=== PATIENT | male | born 1945 | race Caucasian/White ===

== ENCOUNTER 2016-07-28 01:32 | Emergency (ER) | payer MEDICARE, OTHER ==
[2016-07-28 01:43] VITALS: BP 134/77; PULSE 90; O2SAT 95
--- NOTE | 2016-07-28 01:53 | ERPHSYRPT ---
- History of Present Illness Time Seen by Provider: 07/28/16 01:49 Source: patient, family Exam Limitations: no limitations Physician History: pt has enlarged proste medically treated but with some urinary residual , aqnd has a UTI about every 2 years; he presents with same symptoms as usual UTI; no vomiting, some fever, no abdominal pain and is emptying bladder per usual. Timing/Duration: today Activites at Onset: none Onset Location: other (urinary) Pain Radiation: none Severity of Pain-Max: none Severity of Pain-Current: none Associated Symptoms: dysuria, urinary frequency Prior abdominal problems: similar symptoms Sexual intercourse history: non-contributory Allergies/Adverse Reactions: Sulfa (Sulfonamide Antibiotics) Allergy (Verified 07/28/16 01:55) Home Medications: Lisinopril 40 mg PO DAILY 01/01/13 [History] Dutasteride 0.5 MG [Avodart 0.5 MG] 0.5 mg PO BID 07/28/16 [History] Finasteride 5 mg [Proscar 5 MG] 5 mg PO DAILY 07/28/16 [History] Hx Tetanus, Diphtheria Vaccination/Date Given: Yes Hx Influenza Vaccination/Date Given: No Hx Pneumococcal Vaccination/Date Given: No - Past Medical History Pertinent Past Medical History: Yes Neurological History: No Pertinent History ENT History: No Pertinent History Cardiac History: Hypertension Respiratory History: No Pertinent History Endocrine Medical History: No Pertinent History GI Medical History: No Pertinent History History: Other (known enlarged prostate) Psycho-Social History: No Pertinent History Male Reproductive Disorders: Prostate Problems - Past Surgical History Past Surgical History: Yes Neuro Surgical History: No Pertinent History Cardiac: No Pertinent History Respiratory: No Pertinent History Gastrointestinal: No Pertinent History Genitourinary: No Pertinent History Musculoskeletal: No Pertinent History Male Surgical History: No Pertinent History Other Surgical History: TONSILECTOMY ADNOIDECTOMY - Social History Smoking Status: Never smoker Exposure to second hand smoke: No Drug Use: none Patient Lives Alone: No - Review of Systems Constitutional: Fever, No Chills Eyes: No Symptoms Ears, Nose, & Throat: No Symptoms Respiratory: No Cough, No Dyspnea Cardiac: No Chest Pain, No Edema, No Syncope Abdominal/Gastrointestinal: No Abdominal Pain, No Nausea, No Vomiting, No Diarrhea Genitourinary Symptoms: Dysuria, Frequency, Hesitancy, Urgency Musculoskeletal: No Back Pain, No Neck Pain Skin: No Rash Neurological: No Dizziness, No Focal Weakness, No Sensory Changes Psychological: No Symptoms Endocrine: No Symptoms All Other Systems: Reviewed and Negative - Nursing Vital Signs Nursing Vital Signs: Initial Vital Signs Temperature 100.3 F Temperature Source Oral Pulse Rate 90 Respiratory Rate 18 Blood Pressure [Right Arm] 134/77 Pain Intensity 1 - Physical Exam General Appearance: no apparent distress, alert Eye Exam: PERRL/EOMI Ears, Nose, Throat Exam: pharynx normal, moist mucous membranes Neck Exam: normal inspection, supple Respiratory Exam: normal breath sounds, lungs clear Cardiovascular Exam: regular rate/rhythm, No edema Gastrointestinal/Abdomen Exam: soft, No tenderness Back Exam: normal inspection, No CVA tenderness Extremity Exam: normal inspection, normal range of motion, No pedal edema Neurologic Exam: alert, oriented x 3, cooperative, sensation nml, No motor deficits Skin Exam: normal color, warm, dry, No rash SpO2: 95 Oxygen Delivery: Room Air - Course Nursing assessment & vital signs reviewed: Yes Ordered Tests: Active Orders 24 hr Category Date Time Status UA W/ MICROSCOPIC Stat Lab 07/28/16 02:07 Completed Medication Summary Discontinued Medications Generic Name Dose Route Start Last Admin Trade Name Freq PRN Reason Stop Dose Admin Ciprofloxacin 500 mg 07/28/16 01:56 07/28/16 02:02 Cipro 500 Mg PO 07/28/16 01:57 500 mg STAT STA Administration Ciprofloxacin Confirm 07/28/16 02:00 Cipro 500 Mg Administered 07/28/16 02:01 Dose 500 mg .ROUTE .STK-MED ONE Nitrofurantoin Macrocrystals 100 mg 07/28/16 02:00 07/28/16 02:02 Macrobid 100mg Capsule PO 07/28/16 02:01 100 mg STAT ONE Administration Nitrofurantoin Macrocrystals Confirm 07/28/16 02:02 Macrobid 100mg Capsule Administered 07/28/16 02:03 Dose 100 mg .ROUTE .STK-MED ONE Lab/Rad Data: Laboratory Results 07/28/16 Range/Units 02:07 Ur Collection Type CLEAN CATCH Urine Color YELLOW (YELLOW) Urine Appearance CLEAR (CLEAR) Urine pH 6.0 (5-6) Ur Specific [place] 1.020 (1.005-1.025) Urine Protein 30 (Negative) Urine Glucose (UA) NEGATIVE (NEGATIVE) mg/dL Urine Ketones NEGATIVE (NEGATIVE) Urine Nitrite NEGATIVE (NEGATIVE) Urine Bilirubin NEGATIVE (NEGATIVE) Urine Urobilinogen 1 (0-1) mg/dL Urine WBC (Auto) NEGATIVE (NEGATIVE) Urine RBC (Auto) SMALL (0-5) Deo/ul Urine Microscopic RBC 5-10 (0-2) /HPF Urine Microscopic WBC 0-2 (0-5) /HPF Ur Epithelial Cells RARE (FEW) /HPF Urine Bacteria FEW (NEGATIVE) /HPF Urine Mucus MODERATE (NEGATIVE) /HPF Specimen Received 07/28/16 0200 - Progress Progress: improved, re-examined Progress Note: 07/28/16 02:54 discussed with pt the near negative UA and his mild resp symptoms; he would like to start treatmetn as it si so much like the prior UTI and will f/u PCP - will send culture; he declines further workup at this time but will f/u PCP; Counseled pt/family regarding: lab results, diagnosis, need for follow-up - Departure Time of Disposition: 03:00 Departure Disposition: Home Clinical Impression: urinary clinical symptoms with fever Condition: Good Critical Care Time: No Instructions: Urinary Tract Infection (UTI), Fever (Symptom) -- Adult Additional Instructions: followup with your dr for progress and possibly more testing this week ; return meantime if not improving Prescriptions: Levofloxacin [Levaquin] 500 mg PO DAILY #10 tablet Nitrofurantoin Monohyd/M-Cryst [Macrobid 100 mg Capsule] 100 mg PO BID #20 capsule
[2016-07-28] MEDS ORDERED: Cipro 500 MG PO STA (01:56)
[2016-07-28] MEDS ORDERED: Macrobid 100MG Capsule PO ONE (02:00)
[2016-07-28] MEDS ORDERED: Cipro 500 MG ONE (02:00)
[2016-07-28] MEDS ORDERED: Macrobid 100MG Capsule ONE (02:02)
[2016-07-28 02:19] LABS: Collection Type CLEAN CATCH
[2016-07-28 02:20] LABS: Bacteria FEW /HPF (NEGATIVE); COMPLETE URINE MICROSCOPIC? YES; Epithelial Cells RARE /HPF (FEW); Mucus MODERATE /HPF (NEGATIVE); WBC 0-2 /HPF (0-5)
== END 2016-07-28 03:12 | disposition home or self-care (01) ==
LOC: ED 01:32
DX: R50.9 Fever, unspecified (principal); R31.9 Hematuria, unspecified; R30.0 Dysuria; R35.0 Frequency of micturition
CPT/HCPCS: 81000; 87086; 99283; A9270-GY

== ENCOUNTER 2020-06-22 12:04 | Emergency (ER) | payer MEDICARE, OTHER ==
--- NOTE | 2020-06-22 12:40 | ERPHSYRPT ---
- History of Present Illness Time Seen by Provider: 06/22/20 12:30 Source: patient Exam Limitations: no limitations Patient Subjective Stated Complaint: Rib pain/injury Triage Nursing Assessment: Patient ambulated back to ED with slow and steady ga it. Patient A+O x3. Patient's skin pink, warm and dry. Patient complains of left sided rib pain. Patient states around 10 am he was using a chainsaw cutting a log and slipped causing him to land on his left side/rib. Patient complains of constant aching, intermittent sharp pain 9/10. No bruising noted. Physician History: Patient is a 74-year-old male presents to our ED with complaints of left-sided rib pain. Patient states he was cutting logs with a chainsaw. Patient slipped on a log and fell onto his left side. Injury occurred just prior to arrival. Patient's pain is at the area of ribs 4 5 and 6. Pain is mostly posterior lateral. No other injuries reported. No BHT or LOC. No neck pain. Cervical spine cleared clinically. Patient denies shortness of breath. Patient is ambulatory with a normal gait pattern. No lower extremity pain. The fall was mechanical. The fall was not associated with any neuro cardiovascular symptomology. Patient declined pain medication is he is no pain may be is still. Patient voices no other complaints at this time. Timing/Duration: today Severity: moderate Modifying Factors: Improves With: movement Associated Symptoms: denies symptoms Allergies/Adverse Reactions: Sulfa (Sulfonamide Antibiotics) Allergy (Verified 06/22/20 12:16) Home Medications: Lisinopril 40 mg PO DAILY 01/01/13 [History] Dutasteride 0.5 MG [Avodart 0.5 MG] 0.5 mg PO BID 07/28/16 [History] Finasteride 5 mg [Proscar 5 MG] 5 mg PO DAILY 07/28/16 [History] Hx Tetanus, Diphtheria Vaccination/Date Given: Yes Hx Influenza Vaccination/Date Given: No Hx Pneumococcal Vaccination/Date Given: No Immunizations Up to Date: Yes Travel Risk - International Travel Have you traveled outside of the country in past 3 weeks: No - Coronavirus Screening Are you exhibiting any of the following symptoms?: No Close contact with a COVID-19 positive Pt in past 14-21 Days: No - Vaccine Status Have you recieved a Covid-19 vaccination: No - Review of Systems Constitutional: No Symptoms Eyes: No Symptoms Ears, Nose, & Throat: No Symptoms Respiratory: No Symptoms Cardiac: No Symptoms Abdominal/Gastrointestinal: No Symptoms Genitourinary Symptoms: No Symptoms Musculoskeletal: No Symptoms Skin: No Symptoms Neurological: No Symptoms Psychological: No Symptoms Endocrine: No Symptoms Hematologic/Lymphatic: No Symptoms Immunological/Allergic: No Symptoms - Past Medical History Pertinent Past Medical History: Yes Neurological History: No Pertinent History ENT History: No Pertinent History Cardiac History: Hypertension Respiratory History: No Pertinent History Endocrine Medical History: No Pertinent History GI Medical History: No Pertinent History History: Other Psycho-Social History: No Pertinent History Male Reproductive Disorders: Prostate Problems Other Medical History: bph - Past Surgical History Past Surgical History: Yes Neuro Surgical History: No Pertinent History Cardiac: No Pertinent History Respiratory: No Pertinent History Gastrointestinal: No Pertinent History Genitourinary: No Pertinent History Musculoskeletal: No Pertinent History Male Surgical History: No Pertinent History Other Surgical History: TONSILECTOMY ADNOIDECTOMY - Social History Smoking Status: Never smoker Exposure to second hand smoke: No Drug Use: none Patient Lives Alone: No - Nursing Vital Signs Nursing Vital Signs: Initial Vital Signs Temperature 97.9 F 06/22/20 12:18 Pulse Rate 111 H 06/22/20 12:18 Respiratory Rate 18 06/22/20 12:18 Blood Pressure 144/101 06/22/20 12:18 O2 Sat by Pulse Oximetry 96 06/22/20 12:18 Pain Scale Pain Intensity 4 - Physical Exam General Appearance: no apparent distress, alert Eye Exam: PERRL/EOMI, eyes nml inspection Ears, Nose, Throat Exam: normal ENT inspection, TMs normal, pharynx normal, moist mucous membranes Neck Exam: normal inspection, non-tender, supple, full range of motion Respiratory Exam: normal breath sounds, lungs clear, No respiratory distress Cardiovascular Exam: regular rate/rhythm, normal heart sounds, normal peripheral pulses Gastrointestinal/Abdomen Exam: soft, normal bowel sounds, No tenderness, No mass Back Exam: normal inspection, normal range of motion, No CVA tenderness, No vertebral tenderness Extremity Exam: normal inspection, normal range of motion, pelvis stable Neurologic Exam: alert, oriented x 3, cooperative, normal mood/affect, nml cerebellar function, nml station & gait, sensation nml, No motor deficits Skin Exam: normal color, warm, dry, No rash Lymphatic Exam: No adenopathy SpO2 Interpretation: normal SpO2: 96 O2 Delivery: Room Air - Course Nursing assessment & vital signs reviewed: Yes - Radiology Exams Chest X-ray Interpretation: Reviewed by me (Hyperinflated lungs. Without focal infiltrate. No large effusion no pneumothorax. Heart not enlarged. Tortuous descending aorta. Bony thorax intact. Osteopenia with degenerative changes and scoliosis.) Ribs X-ray Interpretation: Teleradiologist Report (Nondisplaced lateral 10th rib fracture. Osteopenia. 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 Patient declined pain medication. X-ray reveals left lateral 10th rib nondisplaced fracture. Otherwise no acute findings. Patient received an incentive spirometer. He will use [id number] pain medication. Patient has no other complaints. No other injuries reported. Patient states he is ready for discharge. He voices no other complaints at this time. Patient agrees to follow-up with primary care doctor within 48 hours for reevaluation. 06/22/20 13:23 Counseled pt/family regarding: diagnosis, need for follow-up, rad results - Departure Departure Disposition: Home Clinical Impression: Rib fracture, Osteopenia, Scoliosis, Arthritis Condition: Stable Critical Care Time: No Referrals: CORTES FERNANDO [Primary Care Provider] - Additional Instructions: Discharge/Care Plan TRUDYELIANA VIRAMONTES was seen on 06/22/20 in the Emergency Room. The patient was counseled regarding Diagnosis,Lab results, Imaging studies, need for follow up and when to return to the Emergency Room. Prescriptions given: Discharge Note I have spoken with the patient and/or caregivers. I have explained the patient's condition, diagnosis and treatment plan based on the information available to me at this time. I have answered the patient's and/or caregiver's questions and addressed any concerns. The patient and/or caregivers have as good understanding of the patient's diagnosis, condition and treatment plan as can be expected at this point. The vital signs have been stable. The patient's condition is stable and appropriate for discharge from the emergency department. The patient will pursue further outpatient evaluation with the primary care physician or other designated or consulting physician as outlined in the discharge instructions. The patient and/or caregivers are agreeable to this plan of care and follow-up instructions have been explained in detail. The patient and/or caregivers have received these instruction. The patient/and or caregivers are aware that any significant change in condition or worsening of symptoms should prompt an immediate return to this or the closest emergency department or call 911.
--- NOTE | 2020-06-22 13:08 | XRAY ---
Indication: Left-sided pain following fall. Comparison: None Portable chest hyperinflated without focal infiltrate, consolidation, large effusion, or pneumothorax. Heart not enlarged with tortuous descending aorta. Bony thorax intact with mild osteopenia, degenerative changes, and scoliosis. Impression: Nonacute chest with chronic features.
[2020-06-22 13:11] VITALS: BP 144/92; PULSE 86
--- NOTE | 2020-06-22 13:11 | XRAY ---
Indication: Pain following fall. Comparison: None 2 view left ribs demonstrates nondisplaced lateral 10th rib fracture. 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
[2020-06-22 13:25] VITALS: O2SAT 96
== END 2020-06-22 13:44 | disposition home or self-care (01) ==
LOC: ED 12:04
DX: S22.32XA Fracture of one rib, left side, initial encounter for closed fracture (principal); W22.8XXA Striking against or struck by other objects, initial encounter; Y93.89 Activity, other specified; Y92.89 Other specified places as the place of occurrence of the external cause; Z79.899 Other long term (current) drug therapy; M85.80 Other specified disorders of bone density and structure, unspecified site; M19.90 Unspecified osteoarthritis, unspecified site; M41.9 Scoliosis, unspecified
CPT/HCPCS: 71045; 71100; 99283

== ENCOUNTER 2023-02-12 05:51 | Day surgery (SDC) | payer MEDICARE, OTHER ==
[2023-02-12] MEDS ORDERED: Lactated Ringers 1,000 ML IV SCH (06:30)
[2023-02-12 06:36] VITALS: RESP 18
[2023-02-12] MEDS ORDERED: Xylocaine-Mpf 2% 5 Ml Vial ONE (07:35)
[2023-02-12] MEDS ORDERED: DIPRIVAN 200 MG/20 ML IV ONE ×2 (07:35→07:52)
[2023-02-12 08:52] VITALS: BP 135/95; PULSE 83; TEMP 97; O2SAT 96
--- NOTE | 2023-02-12 10:45 | OP ---
SURGERY DATE/TIME: 02/12/2023 0733 PREOPERATIVE DIAGNOSIS: Change in bowel habits. POSTOPERATIVE DIAGNOSIS: Diverticulosis. PROCEDURE: Colonoscopy. SURGEON: Miguel Valles M.D. ANESTHESIA: MAC by Anton Rios CRNA. ESTIMATED BLOOD LOSS: None. SPECIMENS: None. DESCRIPTION OF PROCEDURE: After informed written consent was obtained, the patient was taken to the endoscopy suite. He was placed in left lateral decubitus position and anesthesia was titrated to desired level of consciousness. Digital rectal exam showed mild external hemorrhoids but no other lesion. The scope was inserted into the rectum and sequentially the entire colonic mucosa was traversed. The level of cecum was reached and verified with direct visualization of the ileocecal valve. Upon withdrawal scattered diverticula were noted mostly on the left side of the colon but there were no areas of bleeding or colitis. No masses or appreciable mucosal abnormalities otherwise. Prior to withdrawal retroflexion showed no internal lesions. The scope was removed. The patient was transferred to the recovery room in good condition.
== END 2023-02-12 08:55 | disposition home or self-care (01) ==
LOC: SDC 05:51
PROVIDERS: ATTEND Family Medicine
DX: K57.30 Diverticulosis of large intestine without perforation or abscess without bleeding (principal); R19.4 Change in bowel habit; K64.4 Residual hemorrhoidal skin tags
CPT/HCPCS: J2704

== ENCOUNTER 2023-08-22 10:56 | Emergency (ER) | payer MEDICARE, OTHER ==
[2023-08-22 11:12] VITALS: TEMP 98
[2023-08-22] MEDS ORDERED: Hydromorphone 1 mg/ml Injection ONE (11:38)
[2023-08-22] MEDS ORDERED: Zofran 4 MG/2 ML VIAL ONE (11:38)
[2023-08-22] MEDS: Zofran 4 MG/2 ML VIAL IV ONE (11:39)
[2023-08-22 11:40] LABS: Absolute Neutrophil Ct (ANC) 10.44 x10^3/uL (1.78-5.38); BASOPHIL % 0.2 % (0.2-1.2); Basophil (Absolute #) 0.02 x10^3/uL (0.01-0.08); Eosinophil % 0.2 % (0.8-7.0); Eosinophil (Absolute #) 0.03 x10^3/uL (0.04-0.54); Hematocrit 46.9 % (40.1-51.0); Hemoglobin 15.5 g/dL (13.7-17.5); IMMATURE GRAN # 0.12 x10^3u/L (0.001-0.031); IMMATURE GRAN % 0.9 % (0.001-0.429); Lymphocyte (Absolute #) 1.11 x10^3/uL (1.32-3.57); Lymphocytes % 8.7 % (21.8-53.1); Mean Cell Volume 91.6 fL (79.0-92.2); Mean Corpuscular Hemoglobin 30.3 pg (25.7-32.2); Mean Platelet Volume 10.2 fL (9.4-12.4); Monocyte (Absolute #) 1.02 x10^3/uL (0.30-0.82); Platelet Count 298 x10^3/uL (163-337); Red Blood Count 5.12 x10^6/uL (4.63-6.08); Red Cell Distribution Width 14.7 % (11.6-14.4); White Blood Count 12.7 x10^3/uL (4.23-9.07)
[2023-08-22] MEDS: Hydromorphone 1 mg/ml Injection IV ONE (11:40)
[2023-08-22 11:51] LABS: ALBUMIN 3.7 g/dL (3.5-5.0); ANION GAP 8.9 MEQ/L (5-15); BILIRUBIN,TOTAL 0.7 mg/dL (0.2-1.3); Calcium 8.8 mg/dL (8.4-10.2); Creatinine 1 1.02 mg/dL (0.66-1.25); EST GLOMERULAR FILTRATION RATE 75.2 ML/MIN; Potassium 3.2 mmol/L (3.5-5.1); Total Protein 7.1 g/dL (6.3-8.2)
[2023-08-22 11:56] LABS: Appearance Clear (Clear); Bacteria None Seen /HPF (None Seen); Bilirubin Negative (Negative); Blood Negative (Negative); Epithelial Cells Rare /HPF (None Seen); Glucose, Urine 500 mg/dL (Negative); Ketones Negative (Negative); Leukocyte Esterase Negative (Negative); Nitrite Negative (Negative); Ph 5.5 (4.6-8.0); Protein,Urine Dip Negative (Negative); RBC 0-2 /HPF (0-5); Specific Gravity 1.025 (1.005-1.030); WBC 0-2 /HPF (0-5)
[2023-08-22 12:03] VITALS: RESP 16
[2023-08-22 12:04] LABS: ADD URINE CULTURE? NO (NO)
--- NOTE | 2023-08-22 13:36 | XRAY ---
Indication: Right flank pain. Multiple contiguous has images obtained through the abdomen and pelvis using 80 cc Isovue 370 contrast. Comparison: None Lung bases demonstrates minimal bilateral dependent atelectasis and tiny right lower lobe calcified granuloma. Heart not enlarged. Noncontrasted stomach and bowel loops appear nonobstructed. Normal appearing appendix. Mild diffuse scattered colonic fecal debris greatest in ascending and transverse colon. Also scattered sigmoid diverticulosis without diverticulitis. Gallbladder demonstrates a few tiny cholesterol stones, largest 1 cm. Both kidneys enhance and excrete with 1.2 cm right mid and 9 mm left upper renal cysts. Markedly enlarged prostate gland impresses on the base of the bladder. Posterior urinary bladder wall demonstrates mild wall thickening/irregularity with calcifications concerning for malignancy. Incidental tiny splenic calcified granulomas. No free fluid/air. Remaining liver, gallbladder, pancreas, spleen, adrenal glands, kidneys, ureters, and bladder are unremarkable. Mild scattered aortoiliac calcifications. No AAA or pathologic retroperitoneal lymphadenopathy. Osseous structures intact with osteopenia, moderate levorotoscoliosis centered at L2-L3, remote L2 superior endplate fracture with 50-75% height loss, small superior L4 Schmorl node, and mild degenerative changes both hips. Small fatty right inguinal hernia. Impression: 1. Posterior urinary bladder wall thickening/irregularity with calcifications. Rule out transitional cell carcinoma. 2. Mild diffuse fecal stasis. 3. Chronic findings including sigmoid diverticulosis, cholesterol gallstones, bilateral renal cyst, enlarged prostate gland, arteriosclerotic disease, chronic bony findings, fatty right inguinal hernia, and old granulomatous disease.
[2023-08-22 13:59] VITALS: BP 125/75; PULSE 67; O2SAT 96
--- NOTE | 2023-08-22 14:15 | ERPHSYRPT ---
- History of Present Illness Time Seen by Provider: 08/22/23 10:58 Source: patient Exam Limitations: no limitations Patient Subjective Stated Complaint: C/O increasing back pain since Friday. Patient was seen by a [employer] on Friday. The pain is getting worse. Triage Nursing Assessment: Patient is alert and oriented. No skin alterations noted to area of pain. Denies recent fall or injuries. Physician History: Patient is here with nontraumatic back pain. This started approximately 7 days ago. Patient states that he was outside using a spray can. It was supposed to have straps to attach to his back. However, the straps are broken and therefore he was carrying it around and was bending over a lot to use it. States that the next day his back hurt very much. 3 days ago he saw a nurse practitioner at urgent care. No imaging was obtained. Pain is mostly in his low back. He has no upper back pain, no chest pain, no nausea, vomiting. No other anginal equivalents. The nurse practitioner gave him steroids and other medication. States that this did help initially. However he took his last dose of steroids today and had some continued pain. Therefore arrived to the emergency department. Patient states that he has seen a chiropractor in his past for back pain. He has previous MRIs but of his back done by the chiropractor. Allergies/Adverse Reactions: Sulfa (Sulfonamide Antibiotics) Allergy (Verified 08/22/23 11:01) Home Medications: lisinopriL [Lisinopril] 40 mg PO DAILY 01/01/13 [History] Dutasteride 0.5 MG [Avodart 0.5 MG] 0.5 mg PO BID 07/28/16 [History] Apixaban [Eliquis] 5 mg PO BID 01/28/23 [History] Rosuvastatin Calcium 10 mg PO DAILY 01/28/23 [History] Tamsulosin HCl 0.4 mg PO DAILY 01/28/23 [History] Hx Tetanus, Diphtheria Vaccination/Date Given: Yes Hx Influenza Vaccination/Date Given: No Hx Pneumococcal Vaccination/Date Given: No Immunizations Up to Date: Yes Travel Risk - International Travel Have you traveled outside of the country in past 3 weeks: No - Emerging Infectious Disease Are you exhibiting symptoms associated with any current EIDs: No - Past Medical History Pertinent Past Medical History: Yes Neurological History: No Pertinent History ENT History: No Pertinent History Cardiac History: Arrhythmia, Hypertension Respiratory History: No Pertinent History Endocrine Medical History: No Pertinent History GI Medical History: No Pertinent History History: Other Psycho-Social History: No Pertinent History Male Reproductive Disorders: Prostate Problems Other Medical History: bph, A-fib (team driver: Dr. Osorio), chronic back pain - Past Surgical History Past Surgical History: Yes Neuro Surgical History: No Pertinent History Cardiac: No Pertinent History Respiratory: No Pertinent History Gastrointestinal: No Pertinent History Genitourinary: No Pertinent History Musculoskeletal: No Pertinent History Male Surgical History: No Pertinent History Other Surgical History: TONSILECTOMY ADNOIDECTOMY - Social History Smoking Status: Never smoker Exposure to second hand smoke: No Drug Use: none Patient Lives Alone: No - Social Determinants of Health Will the patient participate in the screening: Yes Do you worry about a steady place to live?: No Do you have any problems with any of the following?: No known problems In the past 12 months,have you had to go without utilities?: No Transportation Issues: No Has anyone in your support network made you feel unsafe?: No Have you or anyone in your house had to go without enough: No - Nursing Vital Signs Nursing Vital Signs: Initial Vital Signs Blood Pressure 151/88 08/22/23 11:02 O2 Sat by Pulse Oximetry 98 08/22/23 11:02 Pain Scale Pain Intensity 0 - Physical Exam SpO2 Interpretation: normal SpO2: 96 Comments: 08/22/23 14:31 Review of Systems Constitutional: Negative for fever. HENT: Negative for congestion. Respiratory: Negative for shortness of breath. Cardiovascular: Negative for chest pain. Gastrointestinal: Negative for abdominal pain. Genitourinary: Negative for dysuria. Musculoskeletal: Negative for back pain. Skin: Negative for rash. Neurological: Negative for headaches. Psychiatric/Behavioral: Negative for behavioral problems. All other systems reviewed and are negative. Physical Exam Vitals signs and nursing note reviewed. Constitutional: Appearance: Patient is well-developed. HENT: Head: Normocephalic and atraumatic. Eyes: Conjunctiva/sclera: Conjunctivae normal. Neck: Musculoskeletal: Normal range of motion. Trachea: No tracheal deviation. Cardiovascular: Rate and Rhythm: Normal rate. Pulmonary: Effort: Pulmonary effort is normal. No respiratory distress. Abdominal: Palpations: Abdomen is soft. Musculoskeletal: General: Patient has nonreproducible mid and lower back pain. He has no midline tenderness, no step-offs no deformities. No overlying skin changes. No obvious deformity, sensation intact, 2+ capillary refill, 2 point tactile discrimination intact. 5 out of 5 strength. Full range of motion without pain. Compartments are soft, nontender. Overlying skin shows no tenting, bruising, ecchymosis. Skin: General: Skin is warm and dry. Neurological/ Psychiatric: Mental Status: Mental status, behavior, interaction with environment is appropriate for patient's age and condition - Course Nursing assessment & vital signs reviewed: Yes Ordered Tests: Active Orders 24 hr Category Date Time Status IV Insertion STAT Care 08/22/23 11:22 Active ABDOMEN AND PELVIS W CONTRAST [CT] Stat Exams 08/22/23 11:23 Completed CBC W DIFF Stat Lab 08/22/23 11:22 Completed CMP Stat Lab 08/22/23 11:32 Completed LIPASE Stat Lab 08/22/23 11:32 Completed TROPONIN Q4H Lab 08/22/23 11:32 Completed TROPONIN Q4H Lab 08/22/23 15:30 Ordered TROPONIN Q4H Lab 08/22/23 19:30 Ordered UA W/RFX UR CULTURE Stat Lab 08/22/23 11:45 Completed Medication Summary Discontinued Medications Generic Name Dose Route Start Last Admin Trade Name Giuliano PRN Reason Stop Dose Admin Hydromorphone HCl 1 mg 08/22/23 11:22 08/22/23 11:40 Hydromorphone 1 Mg/1ml Inj IV 08/22/23 11:23 1 mg STAT ONE Administration Hydromorphone HCl Confirm 08/22/23 11:38 Hydromorphone 1 Mg/1ml Inj Administered 08/22/23 11:39 Dose 1 mg .ROUTE .STK-MED ONE Ondansetron HCl 4 mg 08/22/23 11:22 08/22/23 11:39 Ondansetron Hcl 4 Mg/2 Ml Vial IV 08/22/23 11:23 4 mg STAT ONE Administration Ondansetron HCl Confirm 08/22/23 11:38 Ondansetron Hcl 4 Mg/2 Ml Vial Administered 08/22/23 11:39 Dose 4 mg .ROUTE .STK-MED ONE Lab/Rad Data: Laboratory Result Diagrams 08/22/23 11:22 08/22/23 11:32 Laboratory Results 08/22/23 08/22/23 08/22/23 Range/Units 11:45 11:32 11:32 WBC (4.23-9.07) x10^3/uL RBC (4.63-6.08) x10^6/uL Hgb (13.7-17.5) g/dL Hct (40.1-51.0) % MCV (79.0-92.2) fL MCH (25.7-32.2) pg MCHC (32.3-36.5) g/dL RDW (11.6-14.4) % Plt Count (163-337) x10^3/uL MPV (9.4-12.4) fL Gran % (34.0-67.9) % Immature Gran % (Auto) (0.001-0.429) % Nucleat RBC Rel Count (0.00-0.2) % Eos # (Auto) (0.04-0.54) x10^3/uL Immature Gran # (Auto) (0.001-0.031) x10^3u/L Absolute Lymphs (auto) (1.32-3.57) x10^3/uL Absolute Monos (auto) (0.30-0.82) x10^3/uL Absolute Nucleated RBC (0.00-0.012) x10^3u/L Lymphocytes % (21.8-53.1) % Monocytes % (5.3-12.2) % Eosinophils % (0.8-7.0) % Basophils % (0.2-1.2) % Absolute Granulocytes (1.78-5.38) x10^3/uL Basophils # (0.01-0.08) x10^3/uL Sodium 142 (135-145) mmol/L Potassium 3.2 L (3.5-5.1) mmol/L Chloride 109 H (98-107) mmol/L Carbon Dioxide 28 (22-30) mmol/L Anion Gap 8.9 (5-15) MEQ/L BUN 31 H (9-20) mg/dL Creatinine 1.02 (0.66-1.25) mg/dL Estimated GFR 75.2 ML/MIN Glucose 121 H (74-106) mg/dL Calcium 8.8 (8.4-10.2) mg/dL Total Bilirubin 0.70 (0.2-1.3) mg/dL AST 23 (17-59) U/L ALT 24 (0-50) U/L Alkaline Phosphatase 92 (38-126) U/L Troponin I 0.030 (0.000-0.033) ng/mL Serum Total Protein 7.1 (6.3-8.2) g/dL Albumin 3.7 (3.5-5.0) g/dL Lipase 28 (23-300) U/L Urine Color Yellow (Yellow) Urine Appearance Clear (Clear) Urine pH 5.5 (4.6-8.0) Ur Specific [place] 1.025 (1.005-1.030) Urine Protein Negative (Negative) Urine Glucose (UA) 500 A (Negative) mg/dL Urine Ketones Negative (Negative) Urine Blood Negative (Negative) Urine Nitrite Negative (Negative) Urine Bilirubin Negative (Negative) Urine Urobilinogen 1.0 A (0.2) mg/dL Ur Leukocyte Esterase Negative (Negative) U Hyaline Cast (Auto) 3-5 A (0-2) /LPF Urine Microscopic RBC 0-2 (0-5) /HPF Urine Microscopic WBC 0-2 (0-5) /HPF Ur Epithelial Cells Rare (None Seen) /HPF Urine Bacteria None Seen (None Seen) /HPF Urine Culture Reflexed NO (NO) 08/22/23 Range/Units 11:22 WBC 12.7 H (4.23-9.07) x10^3/uL RBC 5.12 (4.63-6.08) x10^6/uL Hgb 15.5 (13.7-17.5) g/dL Hct 46.9 (40.1-51.0) % MCV 91.6 (79.0-92.2) fL MCH 30.3 (25.7-32.2) pg MCHC 33.0 (32.3-36.5) g/dL RDW 14.7 H (11.6-14.4) % Plt Count 298 (163-337) x10^3/uL MPV 10.2 (9.4-12.4) fL Gran % 82.0 H (34.0-67.9) % Immature Gran % (Auto) 0.9 H (0.001-0.429) % Nucleat RBC Rel Count 0.0 (0.00-0.2) % Eos # (Auto) 0.03 L (0.04-0.54) x10^3/uL Immature Gran # (Auto) 0.12 H (0.001-0.031) x10^3u/L Absolute Lymphs (auto) 1.11 L (1.32-3.57) x10^3/uL Absolute Monos (auto) 1.02 H (0.30-0.82) x10^3/uL Absolute Nucleated RBC 0.00 (0.00-0.012) x10^3u/L Lymphocytes % 8.7 L (21.8-53.1) % Monocytes % 8.0 (5.3-12.2) % Eosinophils % 0.2 L (0.8-7.0) % Basophils % 0.2 (0.2-1.2) % Absolute Granulocytes 10.44 H (1.78-5.38) x10^3/uL Basophils # 0.02 (0.01-0.08) x10^3/uL Sodium (135-145) mmol/L Potassium (3.5-5.1) mmol/L Chloride (98-107) mmol/L Carbon Dioxide (22-30) mmol/L Anion Gap (5-15) MEQ/L BUN (9-20) mg/dL Creatinine (0.66-1.25) mg/dL Estimated GFR ML/MIN Glucose (74-106) mg/dL Calcium (8.4-10.2) mg/dL Total Bilirubin (0.2-1.3) mg/dL AST (17-59) U/L ALT (0-50) U/L Alkaline Phosphatase (38-126) U/L Troponin I (0.000-0.033) ng/mL Serum Total Protein (6.3-8.2) g/dL Albumin (3.5-5.0) g/dL Lipase (23-300) U/L Urine Color (Yellow) Urine Appearance (Clear) Urine pH (4.6-8.0) Ur Specific [place] (1.005-1.030) Urine Protein (Negative) Urine Glucose (UA) (Negative) mg/dL Urine Ketones (Negative) Urine Blood (Negative) Urine Nitrite (Negative) Urine Bilirubin (Negative) Urine Urobilinogen (0.2) mg/dL Ur Leukocyte Esterase (Negative) U Hyaline Cast (Auto) (0-2) /LPF Urine Microscopic RBC (0-5) /HPF Urine Microscopic WBC (0-5) /HPF Ur Epithelial Cells (None Seen) /HPF Urine Bacteria (None Seen) /HPF Urine Culture Reflexed (NO) - Progress Progress: improved Progress Note: 08/22/23 14:33 Differential diagnosis includes kidney stone, compression fracture, infection, UTI, triple AAA, cardiac issue, pyelonephritis, other fracture, cancer, bone cancer - basic labs including: CBC, lipase, CMP, UA, troponin - insert IV for symptom management - consider imaging: CT ab/pelvis or U/S Reevaluation Patient feels improved with medication. CT demonstrates no obvious back pathology. Patient does have some urinary bladder wall thickening. Concern for possible transitional cell carcinoma. I did discuss this with the patient and the patient's . They state that they see a urologist every 3 months. They state that they will call the urologist in follow-up for this. I did discuss it at length with them. No obvious cause for patient's nontraumatic back pain today outside of overuse injury approximately 1 week ago. Again nonreproducible, feeling improved with pain medication today. No obvious sinister pathology on CT scan causing the pain. Given the patient felt improved with steroids I will do a second dose of steroids, lidocaine patch, Flexeril. Patient has no neurological symptoms, no signs or symptoms of cauda equina. He has no urinary retention, saddle anesthesia on exam. I did discuss all this with the patient and the patient's . They state their understanding. Will follow-up as described. Counseled pt/family regarding: lab results, diagnosis, need for follow-up, rad results - Departure Departure Disposition: Home Clinical Impression: Non-traumatic mid back pain, Bladder wall thickening Condition: Stable Critical Care Time: No Referrals: ARLEY GOODWIN MD [Primary Care Provider] - Follow up/PCP as directed Instructions: Low Back Pain (DC) Prescriptions: Cyclobenzaprine HCl 10 mg [Flexeril 10 MG] 10 mg PO TID #12 tablet Lidocaine [Lidocaine Pain Relief] 1 each TP DAILY 7 Days #7 patch Methylprednisolone Packet [Medrol Dosepack] 4 mg PO UD #1 packet
== END 2023-08-22 14:32 | disposition home or self-care (01) ==
LOC: ED 10:56
DX: M54.50 Low back pain, unspecified (principal); R93.41 Abnormal radiologic findings on diagnostic imaging of renal pelvis, ureter, or bladder; I10 Essential (primary) hypertension; Z79.52 Long term (current) use of systemic steroids; Z79.01 Long term (current) use of anticoagulants; Z79.899 Other long term (current) drug therapy
CPT/HCPCS: 36000; 36415; 74177; 80053; 81001; 83690; 84484; 85025; 96374; 96375; 99284; J1170; J2405

== ENCOUNTER 2023-10-13 15:02 | Emergency (ER) | payer MEDICARE, OTHER ==
--- NOTE | 2023-10-13 15:07 | ERPHSYRPT ---
- History of Present Illness Time Seen by Provider: 10/13/23 15:07 Source: patient, family (Patient's spouse), EMS, old records Exam Limitations: clinical condition Physician History: This is a 78-year-old white male patient of Dr. Goodwin who has chronic back pain and in the last 2 weeks has had worsening low back pain. Today, approxi-2 hours prior to arrival he had sudden severe pain without urinary incontinence, bowel incontinence, pain and numbness in his feet. He did not fall or have any traumatic injury. Patient's spouse arrived after the patient was brought in by the paramedics and provided additional, independent history. She states that the patient took 7.5/325 mg Percocet at 1 PM. Patient also took Lyrica this morning. Patient did pass 3 "kidney stones" per patient's spouse report and she brought those stones into the emergency department. Patient denies chest pain. Patient denies shortness of breath. Patient has a history of atrial fibrill ation on Eliquis. He has prostate issues as well as hyperlipidemia and hypertension. Patient has stopped his Eliquis because he is to have a spinal injection performed here at [facility] on 10/16/2023. Timing/Duration: today Method of Injury: other (Injury) Quality: sharp, stabbing Back Pain Location: lumbar spine Severity of Pain-Max: moderate Severity of Pain-Current: moderate Modifying Factors: Improves With: movement Associated Symptoms: lower back pain, muscle spasms, No urinary incontinence, No loss of bowel control, No vomiting, No problems urinating, No numbness in legs/f eet Previous symptoms: no prior history, recently seen Allergies/Adverse Reactions: Sulfa (Sulfonamide Antibiotics) Allergy (Verified 08/22/23 11:01) Home Medications: lisinopriL [Lisinopril] 40 mg PO DAILY 01/01/13 [History] Dutasteride 0.5 MG [Avodart 0.5 MG] 0.5 mg PO BID 07/28/16 [History] Apixaban [Eliquis] 5 mg PO BID 01/28/23 [History] Rosuvastatin Calcium 10 mg PO DAILY 01/28/23 [History] Tamsulosin HCl 0.4 mg PO DAILY 01/28/23 [History] Furosemide 40 mg [Lasix 40 MG] 40 mg PO DAILY 10/13/23 [History] Oxycodone HCl/Acetaminophen [Oxycodone-Acetaminophn 7.5-325] 1 tab PO TID 10/13/23 [History] Pregabalin 50 mg [Lyrica 50MG] 50 mg PO BID 10/13/23 [History] Hx Tetanus, Diphtheria Vaccination/Date Given: Yes Hx Influenza Vaccination/Date Given: No Hx Pneumococcal Vaccination/Date Given: No Travel Risk - International Travel Have you traveled outside of the country in past 3 weeks: No - Emerging Infectious Disease Are you exhibiting symptoms associated with any current EIDs: No - Review of Systems Constitutional: No Symptoms Eyes: No Symptoms Ears, Nose, & Throat: No Symptoms Respiratory: No Symptoms Cardiac: No Symptoms Abdominal/Gastrointestinal: No Symptoms Genitourinary Symptoms: No Symptoms Musculoskeletal: Back Pain, No Neck Pain, No Fall, No Injury Skin: No Symptoms Neurological: No Symptoms Psychological: No Symptoms Endocrine: No Symptoms Hematologic/Lymphatic: No Symptoms Immunological/Allergic: No Symptoms All Other Systems: Reviewed and Negative - Past Medical History Pertinent Past Medical History: Yes Neurological History: No Pertinent History ENT History: No Pertinent History Cardiac History: Arrhythmia, Hypertension Respiratory History: No Pertinent History Endocrine Medical History: No Pertinent History GI Medical History: No Pertinent History History: Other Psycho-Social History: No Pertinent History Male Reproductive Disorders: Prostate Problems Other Medical History: bph, A-fib (letter of credit document examiner: Dr. Osorio), chronic back pain - Past Surgical History Past Surgical History: Yes Neuro Surgical History: No Pertinent History Cardiac: No Pertinent History Respiratory: No Pertinent History Gastrointestinal: No Pertinent History Genitourinary: No Pertinent History Musculoskeletal: No Pertinent History Male Surgical History: No Pertinent History Other Surgical History: TONSILECTOMY ADNOIDECTOMY - Social History Smoking Status: Never smoker Exposure to second hand smoke: No Drug Use: none Patient Lives Alone: No - Social Determinants of Health Will the patient participate in the screening: Yes Do you worry about a steady place to live?: No In the past 12 months,have you had to go without utilities?: No Transportation Issues: No Has anyone in your support network made you feel unsafe?: No Have you or anyone in your house had to go without enough: No - Nursing Vital Signs Nursing Vital Signs: Initial Vital Signs Temperature 100.0 F 10/13/23 15:06 Pulse Rate 103 H 10/13/23 15:06 Respiratory Rate 18 10/13/23 15:06 Blood Pressure 111/89 10/13/23 15:06 O2 Sat by Pulse Oximetry 95 10/13/23 15:06 Pain Scale Pain Intensity [Lower Back] 5 Pain Intensity 0 - Physical Exam General Appearance: no apparent distress, alert, anxiety Eye Exam: PERRL/EOMI, eyes nml inspection Ears, Nose, Throat Exam: normal ENT inspection, moist mucous membranes Neck Exam: normal inspection, non-tender, supple, full range of motion Respiratory Exam: normal breath sounds, lungs clear, airway intact, No chest tenderness, No respiratory distress Cardiovascular Exam: irregular Gastrointestinal Exam: soft, normal bowel sounds, No tenderness Rectal Exam: No not done Back Exam: normal inspection, normal range of motion, CVA tenderness, decreased range of motion, No vertebral tenderness (Lateral) Extremity Exam: normal inspection, pelvis stable, other, No deformities Neurologic Exam: alert, oriented x 3, cooperative, rn concurrent review II-XII nml as tested, sensation nml Skin Exam: normal color, warm, dry Lymphatic Exam: No adenopathy SpO2 Interpretation: normal O2 Delivery: Room Air - Course Nursing assessment & vital signs reviewed: Yes Ordered Tests: Active Orders 24 hr Category Date Time Status ABDOMEN AND PELVIS W/0 CONTRAS [CT] Stat Exams 10/13/23 15:24 Completed RECONSTRUCTION [CT] Stat Exams 10/13/23 15:25 Completed AMYLASE Stat Lab 10/13/23 15:30 Completed CBC W DIFF Stat Lab 10/13/23 15:30 Completed CMP Stat Lab 10/13/23 15:30 Completed CULTURE,URINE Stat Lab 10/13/23 13:20 Received LIPASE Stat Lab 10/13/23 15:30 Completed UA W/RFX UR CULTURE Stat Lab 10/13/23 13:20 Completed Medication Summary Generic Name Dose Route Start Last Admin Trade Name Freq PRN Reason Stop Dose Admin Sodium Chloride 1,000 mls @ 100 mls/hr 10/13/23 15:30 10/13/23 15:34 Sodium Chloride 0.9% 1000 Ml IV 11/12/23 15:29 100 mls/hr .Q10H BUDDY Administration Cefepime HCl 2 g/ Sodium 100 mls @ 200 mls/hr 10/13/23 17:02 Chloride IV 10/13/23 17:31 STAT STA Discontinued Medications Generic Name Dose Route Start Last Admin Trade Name Giuliano PRN Reason Stop Dose Admin Hydromorphone HCl 1 mg 10/13/23 15:23 10/13/23 15:34 Hydromorphone 1 Mg/1ml Inj IV 10/13/23 15:24 1 mg STAT ONE Administration Hydromorphone HCl Confirm 10/13/23 15:33 Hydromorphone 1 Mg/1ml Inj Administered 10/13/23 15:34 Dose 1 mg .ROUTE .STK-MED ONE Ondansetron HCl 4 mg 10/13/23 15:23 10/13/23 15:34 Ondansetron Hcl 4 Mg/2 Ml Vial IV 10/13/23 15:24 4 mg STAT ONE Administration Ondansetron HCl Confirm 10/13/23 15:31 Ondansetron Hcl 4 Mg/2 Ml Vial Administered 10/13/23 15:32 Dose 4 mg .ROUTE .STK-MED ONE Orphenadrine Citrate 60 mg 10/13/23 15:25 10/13/23 15:34 Orphenadrine Citrate 60 Mg/2 Ml Vial IV 10/13/23 15:26 60 mg STAT ONE Administration Orphenadrine Citrate Confirm 10/13/23 15:31 Orphenadrine Citrate 60 Mg/2 Ml Vial Administered 10/13/23 15:32 Dose 60 mg .ROUTE .STK-MED ONE Lab/Rad Data: Laboratory Result Diagrams 10/13/23 15:30 10/13/23 15:30 Laboratory Results 10/13/23 10/13/23 10/13/23 Range/Units 15:30 15:30 13:20 WBC 14.9 H (4.23-9.07) x10^3/uL RBC 4.44 L (4.63-6.08) x10^6/uL Hgb 13.4 L (13.7-17.5) g/dL Hct 40.7 (40.1-51.0) % MCV 91.7 (79.0-92.2) fL MCH 30.2 (25.7-32.2) pg MCHC 32.9 (32.3-36.5) g/dL RDW 14.0 (11.6-14.4) % Plt Count 321 (163-337) x10^3/uL MPV 9.7 (9.4-12.4) fL Gran % 83.6 H (34.0-67.9) % Immature Gran % (Auto) 1.7 H (0.001-0.429) % Nucleat RBC Rel Count 0.0 (0.00-0.2) % Eos # (Auto) 0.03 L (0.04-0.54) x10^3/uL Immature Gran # (Auto) 0.26 H (0.001-0.031) x10^3u/L Absolute Lymphs (auto) 0.89 L (1.32-3.57) x10^3/uL Absolute Monos (auto) 1.22 H (0.30-0.82) x10^3/uL Absolute Nucleated RBC 0.00 (0.00-0.012) x10^3u/L Lymphocytes % 6.0 L (21.8-53.1) % Monocytes % 8.2 (5.3-12.2) % Eosinophils % 0.2 L (0.8-7.0) % Basophils % 0.3 (0.2-1.2) % Absolute Granulocytes 12.44 H (1.78-5.38) x10^3/uL Basophils # 0.05 (0.01-0.08) x10^3/uL Sodium 136 (135-145) mmol/L Potassium 3.5 (3.5-5.1) mmol/L Chloride 100 (98-107) mmol/L Carbon Dioxide 29 (22-30) mmol/L Anion Gap 10.3 (5-15) MEQ/L BUN 26 H (9-20) mg/dL Creatinine 0.91 (0.66-1.25) mg/dL Estimated GFR 86.3 ML/MIN Glucose 129 H (74-106) mg/dL Calcium 8.4 (8.4-10.2) mg/dL Total Bilirubin 1.00 (0.2-1.3) mg/dL AST 21 (17-59) U/L ALT 25 (0-50) U/L Alkaline Phosphatase 113 (38-126) U/L Serum Total Protein 6.4 (6.3-8.2) g/dL Albumin 3.3 L (3.5-5.0) g/dL Amylase 60 (30-110) U/L Lipase 25 (23-300) U/L Urine Color Yellow (Yellow) Urine Appearance Clear (Clear) Urine pH 6.5 (4.6-8.0) Ur Specific [place] 1.010 (1.005-1.030) Urine Protein Negative (Negative) Urine Glucose (UA) Negative (Negative) mg/dL Urine Ketones Negative (Negative) Urine Blood Negative (Negative) Urine Nitrite Positive A (Negative) Urine Bilirubin Negative (Negative) Urine Urobilinogen 1.0 A (0.2) mg/dL Ur Leukocyte Esterase Negative (Negative) U Hyaline Cast (Auto) NONE SEEN (0-2) /LPF Urine Microscopic RBC NONE SEEN (0-5) /HPF Urine Microscopic WBC NONE SEEN (0-5) /HPF Ur Epithelial Cells None Seen (None Seen) /HPF Urine Bacteria Few A (None Seen) /HPF Urine Culture Reflexed YES (NO) - Progress Progress: improved, pain not gone completely, re-examined Progress Note: 10/13/23 15:29 My medical decision making in the assignment of moderate complexity to this patient's medical issue today is based on review the patient's past medical history, review the patient's medication list, review of the patient's drug allergy list, history present illness and physical findings on examination. Workup in this patient includes placement of a intravenous line, CBC, CMP, amylase, lipase, urinalysis, CT scan of the abdomen pelvis without contrast, lumbar spine reconstruction CT scan, infusion of crystalloid solution, infusion of Norflex, infusion of Dilaudid, infusion of Zofran 10/13/23 15:38 Differential diagnosis includes but is not limited to acute lumbar fracture or spinal cord impingement/stenosis, aortic dissection, ureterolithiasis, acute on chronic low back pain 10/13/23 17:03 I interpreted the patient's laboratory data results. The patient urinalysis is positive for nitrite and only few bacteria but a culture and sensitivity will be sent off. We will hold on that result before starting on an antibiotic for that potential medical issue. CT scan of the lumbar spine reconstruction without contrast was interpreted by the radiologist and I reviewed the impression. There is a new L3-L4 opposing endplate moth-eaten appearance. Concerning for discitis. MRI may yield more information. 10/13/23 17:05 CT scan of the abdomen pelvis without contrast was interpreted by the radiologist and I reviewed the impression. The impression states new L3-L4 opposing endplate "moth-eaten appearance concerning for discitis. Markedly enlarged prostate with distended urinary bladder. Rule out obstruction versus neurogenic bladder. Grossly stable posterior urinary bladder calculus. Counseled pt/family regarding: lab results, diagnosis, need for follow-up, rad results Medical Desision Making - Independent Historian Additional History obtained from: Spouse - Diagnostic Testing Diagnostic test were ordered, analyzed, and reviewed by me: Yes Radiological Interpretation: Reviewed by me, Teleradiologist Report - Risk of complications The pt has a mod risk of morbidity or mortality based on: Need for prescription drug management - Departure Departure Disposition: Home Clinical Impression: Discitis of lumbar region Condition: Stable Critical Care Time: No Referrals: ARLEY GOODWIN MD [Primary Care Provider] - Follow up/PCP as directed Additional Instructions: Wear the lumbar spine brace for comfort. Call your primary care provider tomorrow, 10/14/2023, to make arrangements for follow-up appointment to be seen in the office in the next 2 to 3 days. Continue the Percocet pain medicine as prescribed. Take all your other medications as prescribed. Hold your Eliquis until you are told to restart this medication. Prescriptions: Metronidazole 500 mg [Flagyl 500 MG] 500 mg PO TID #21 tablet Levofloxacin [Levaquin 500 MG Tablet] 500 mg PO DAILY #7 tablet Orphenadrine Citrate 100 mg [Norflex 100 MG Tablet] 100 mg PO BID #10 tab
[2023-10-13 15:12] VITALS: TEMP 100
[2023-10-13] MEDS ORDERED: Zofran 4 MG/2 ML VIAL ONE (15:31)
[2023-10-13] MEDS ORDERED: Norflex 60 MG/2 ML ONE (15:31)
[2023-10-13] MEDS ORDERED: Hydromorphone 1 mg/ml Injection ONE ×2 (15:33→19:08)
[2023-10-13] MEDS ORDERED: Sodium Chloride 0.9% 1000 ML 1,000 ML ONE (15:33)
[2023-10-13] MEDS: Sodium Chloride 0.9% 1000 ML 1,000 ML IV SCH (15:34)
[2023-10-13] MEDS: Norflex 60 MG/2 ML IV ONE (15:34)
[2023-10-13] MEDS: Hydromorphone 1 mg/ml Injection IV ONE ×2 (15:34→19:15)
[2023-10-13] MEDS: Zofran 4 MG/2 ML VIAL IV ONE (15:34)
[2023-10-13 15:35] LABS: Absolute Neutrophil Ct (ANC) 12.44 x10^3/uL (1.78-5.38); BASOPHIL % 0.3 % (0.2-1.2); Basophil (Absolute #) 0.05 x10^3/uL (0.01-0.08); Eosinophil % 0.2 % (0.8-7.0); Eosinophil (Absolute #) 0.03 x10^3/uL (0.04-0.54); Hematocrit 40.7 % (40.1-51.0); Hemoglobin 13.4 g/dL (13.7-17.5); IMMATURE GRAN # 0.26 x10^3u/L (0.001-0.031); IMMATURE GRAN % 1.7 % (0.001-0.429); Lymphocyte (Absolute #) 0.89 x10^3/uL (1.32-3.57); Mean Cell Volume 91.7 fL (79.0-92.2); Mean Corpuscular Hemoglobin 30.2 pg (25.7-32.2); Mean Corpuscular Hgb Concent. 32.9 g/dL (32.3-36.5); Mean Platelet Volume 9.7 fL (9.4-12.4); Monocyte (Absolute #) 1.22 x10^3/uL (0.30-0.82); Monocytes % 8.2 % (5.3-12.2); Neutrophil % 83.6 % (34.0-67.9); Platelet Count 321 x10^3/uL (163-337); Red Blood Count 4.44 x10^6/uL (4.63-6.08); White Blood Count 14.9 x10^3/uL (4.23-9.07)
[2023-10-13 15:50] LABS: ALBUMIN 3.3 g/dL (3.5-5.0); ANION GAP 10.3 MEQ/L (5-15); Calcium 8.4 mg/dL (8.4-10.2); Creatinine 1 0.91 mg/dL (0.66-1.25); EST GLOMERULAR FILTRATION RATE 86.3 ML/MIN; Potassium 3.5 mmol/L (3.5-5.1); Total Protein 6.4 g/dL (6.3-8.2)
[2023-10-13 16:18] LABS: Appearance Clear (Clear); Bilirubin Negative (Negative); Blood Negative (Negative); Epithelial Cells None Seen /HPF (None Seen); Glucose, Urine Negative (Negative); Hyaline Casts NONE SEEN /LPF (0-2); Ketones Negative (Negative); Leukocyte Esterase Negative (Negative); Nitrite Positive (Negative); Ph 6.5 (4.6-8.0); Protein,Urine Dip Negative (Negative)
[2023-10-13 16:19] LABS: ADD URINE CULTURE? YES (NO); Bacteria Few /HPF (None Seen); RBC NONE SEEN /HPF (0-5); WBC NONE SEEN /HPF (0-5)
--- NOTE | 2023-10-13 16:33 | XRAY ---
Indication: Severe back pain. Multiple contiguous axial images obtained through the abdomen and pelvis without contrast. Comparison: August 22, 2023 Lung bases again demonstrates bilateral dependent atelectasis more than before. Again tiny right lower lobe calcified granuloma. Heart not enlarged. Noncontrasted stomach and bowel loops nonobstructed again with normal appendix. Again scattered sigmoid diverticulosis without diverticulitis. Urinary bladder is again markedly distended concerning for neurogenic bladder versus outlet torsion. Grossly stable posterior bladder wall calculi versus calcifications. Again markedly enlarged urinary bladder impresses on the base of the bladder. Stable tiny bilateral renal cysts and tiny splenic calcified granulomas. No free fluid/air. Remaining liver, gallbladder, pancreas, spleen, adrenal glands, kidneys, ureters, and bladder are unremarkable for noncontrast exam. Again mild scattered aortoiliac calcifications without AAA. Osseous structures again demonstrates osteopenia, moderate levorotoscoliosis, remote L2 superior endplate fracture, L4 Schmorl node, and mild degenerative changes both hips. New L3-L4 opposing endplate moth-eaten appearance concerning for discitis. Impression: 1. New L3-L4 opposing endplate moth-eaten appearance concerning for discitis. MRI may yield further information. 2. Again abnormal distended urinary bladder with markedly enlarged prostate gland. Rule out outlet obstruction versus neurogenic bladder. Grossly stable posterior urinary bladder wall calculi versus calcifications. 3. Again chronic findings including sigmoid diverticulosis, bilateral renal cysts, arteriosclerotic disease, chronic bony findings, and old granulomatous disease.
--- NOTE | 2023-10-13 16:35 | XRAY ---
Indication: Severe back pain. Sagittal, coronal, and axial reformatted images lumbar spine performed using raw data from same-day CT abdomen/pelvis exam. Comparison: August 22, 2023 Osseous structures again demonstrates osteopenia, moderate levorotoscoliosis, remote L2 superior endplate fracture, L4 Schmorl node, and mild degenerative changes both hips. New L3-L4 opposing endplate moth-eaten appearance concerning for discitis. Otherwise no acute fracture or subluxation. CT abdomen/pelvis reported separately. Impression: New L3-L4 opposing endplate moth-eaten appearance concerning for discitis. MRI may yield further information.
[2023-10-13] MEDS ORDERED: Maxipime 2 GM ONE (17:09)
[2023-10-13] MEDS ORDERED: Sodium Chloride 0.9% 100 ML ONE (17:10)
[2023-10-13] MEDS: Maxipime 2 GM** 2 G in Sodium Chloride 0.9% 100 ML IV STA (17:20)
[2023-10-13] MEDS ORDERED: solu-MEDROL ONE (17:27)
[2023-10-13] MEDS ORDERED: Sterile H2O 10 ml IJ ONE (17:27)
[2023-10-13] MEDS: solu-MEDROL 125 MG, Sterile H2O 10 ml 2 ML IV ONE (17:30)
[2023-10-13] MEDS ORDERED: Norflex 100 MG Tablet PO ONE ×2 (19:08→19:22)
[2023-10-13] MEDS: Norflex 100 MG Tablet PO ONE (19:23)
[2023-10-13] MEDS: Norflex 100 MG Tablet PO SCH (19:23)
[2023-10-13 19:26] VITALS: BP 111/69; PULSE 95; RESP 23; O2SAT 93
== END 2023-10-13 19:46 | disposition home or self-care (01) ==
LOC: ED 15:02
DX: M46.46 Discitis, unspecified, lumbar region (principal); E78.5 Hyperlipidemia, unspecified; I10 Essential (primary) hypertension; Z79.01 Long term (current) use of anticoagulants; Z79.891 Long term (current) use of opiate analgesic; Z79.899 Other long term (current) drug therapy
CPT/HCPCS: 36415; 74176; 76376; 80053; 81001; 82150; 82360; 83690; 85025; 87077; 87086; 87186; 96365; 96374; 96375; 96376; 99284; J0692; J1170; J2360; J2405; J2919; A9270-GY